=== PATIENT | male | born 1965 | race Caucasian/White ===

== ENCOUNTER 2024-12-02 13:59 | Outpatient (CLI) | payer BC, SELFPAY ==
--- NOTE | 2024-12-02 | CA_ITS ---
APPROVED REPORT EXAM: Comprehensive 2D, Doppler, and color-flow Echocardiogram Pathology Laboratory Aide: Eunice Carmona CRT Ht: 5 ft 7 in Wt: 152lbs BSA: 1.80 BP: 144/76 mmHg Indications: AVR 1985 , Smoker, HTN 2D Dimensions LA Volume 26.40 mL LA Volume Index 14.30 mL/m2 (M/F) 16-34 M-Mode Dimensions RVDd 2.25 cm (0.9-2.6) LA Diam 4.09 cm (1.9-4.0) LVDd 3.75 cm (3.5-5.7) LVDs 2.57 cm (3.5-5.7) IVSd 2.43 cm (0.6-1.1) PWd 1.43 cm (0.6-1.1) EF (Teich) 60.20% FS 31.50% EDV (Teich) 60.00 mL ESV (Teich) 23.90 mL LV Diastology E Decel Time 150 (160-240 msec) E/A Ratio 1.01 MED A' 6.00 cm/s LAT A' 14.00 cm/s Aortic Valve TOÑITO Index 0.73 cm2/m2 AoV Peak Chuck. 276.0 (50-130 cm/s) AO Peak GR. 30.50 mmHg AO Mean GR. 17.90 (<5 mmHg) AO VTI 52.5 (18-25 cm) TOÑITO (VTI) 1.35 (2.5-4.5 cm2) Mitral Valve MV E Max Chuck. 66.0 (40-130 cm/s) MV A Velocity 65.0 (40-130 cm/s) E/A Ratio 1.01 MV PHT 44.0 ms Tricuspid Valve TR P. Velocity 257.00 cm/s RAP Estimate 10.00 mmHg RVSP 36.50 mmHg Left Ventricle The left ventricle is normal size. Left ventricular systolic function is normal. The left ventricular ejection fraction is within the normal range. There is increased left ventricular wall thickness. There is normal LV segmental wall motion. The left ventricular diastolic function is indeterminate. LVEF is 55% Right Ventricle The right ventricle is mildly dilated. The right ventricular systolic function is mildly reduced. Atria The left atrium is mildly dilated. The right atrium is mildly dilated. There is no color Doppler evidence of interatrial shunt. Aortic Valve s/p mechanical AVR (1985). The prosthesis is well-seated. Peak velocity 2.8 m/s. Mean AV gradient 18 mmHg. Max AV gradient is 32 mmHg. Acceleration time 60 ms. Mild central aortic regurgitation is present. Mitral Valve The mitral valve is mildly thickened. No evidence of mitral valve stenosis. Mild mitral regurgitation is present. Tricuspid Valve The tricuspid valve leaflets are thin and pliable. Mild tricuspid regurgitation. RVSP is 25-30 mmHg. Pulmonic Valve The pulmonary valve is grossly normal in structure. Trace pulmonic valve regurgitation is present. Great Vessels The aortic root is normal in size. IVC is normal in size and collapses >50% with inspiration. Pericardium There is no pericardial effusion. Other Information Study Quality: Fair Conclusion Normal LV systolic function. Mild RV dilation with mild reduction in RV function. Mild biatrial dilation. s/p mechanical AVR (1985). Mild AI. Peak velocity 2.8 m/s. Mean AV gradient 18 mmHg. Max AV gradient is 32 mmHg. Acceleration time 60 ms. Mild MR, mild TR. Of note, there is no prior TTE available for comparison of AV gradients. Clinical correlation is required. Electronically signed by : Melanie Rich MD 12/05/2024 21:14:12
--- OUTSIDE RECORDS SUMMARY | 2024-12-02 14:14 | XMS_ITS | Clinical Summary ---
[facility] Organization [facility] Address [address] [place] [address] Care Team Providers Care [employer] Driver Name Role Phone Jan Moore MD Primary Care Provider Allergies No known active allergies Medications mupirocin (BACTROBAN) 2 % ointment Apply topically 3 (Three) Times a Day. 30 g 7 Active Social History Tobacco Use Types Packs/Day Years Used Date Smoking Tobacco: Some Days Comments:pipe smoker Abuse Screen Answer Date Recorded Unsafe at Home or Work/School Not on file Feels Threatened by Someone? Not on file 02/2023 Does Anyone Keep You from Co ntacting Others or Doint Things Outside the Home? Not on file 01/23/2023 Physical Sign of Abuse Present Not on file 1 Housing Stability Answer Date Recorded Current Living Arrangements Not on file 01/13 Potentially Unsafe Housing Conditions Not on vince e 01/23/2023 Family and Community Support Answer Minh e Recorded Help with Day-to-Day Activities Not on file 01/23/2023 Lonely or Isolated Not on file 01/23/2023 Employment Answer Date Recorded Do you want help finding or keeping work or a yoshi b? Not on file 01/23/2023 Disabilities Answer Date Recorded Concentrating, Remembering, or Making Decisions Difficulty Not on file 01/23/2023 Doing Errands Independently Difficulty Not on fi le 01/23/2023 Education Answer Date Recorded Help with school or training? Not on file Preferred Language Not on file 01/23/2023 Sex and Gender Information Value Date Recorded Sex Assigned at Not on file Legal Sex Male 10:06 AM EST Gender Identity Not on file Sexual Orientation Not on file Last Filed Vital Signs Vital Sign Reading Time Taken Comments Blood Pressure - - Pulse 70 04/21/2016 11:20 AM EST Temperature 36.6 C (97.8 F) 04/21/2016 11:20 AM EST Respiratory Rate 16 04/21/2016 11:20 AM EST Oxygen Saturation 98% 04/21/2016 11:20 AM EST Inhaled Oxygen Concentration - - Weight 68.5 kg (151 lb) 04/21/2016 11:20 AM EST Height 171.5 cm (5' 7.5 ) 04/21/2016 11:20 AM ES T Body Mass Index 23.3 04/21/2016 11:20 AM EST Plan of Treatment Health Maintenance Due Date Last Done Comments ANNUAL PHYSICAL 1965 HEPATITIS C SCREENING 1965 TDAP/TD VACCINES (1 - Tdap) 1986 COLOGUARD 02/26/2012 COLON CANCER SCREENING 5 YEAR SIGMOIDOSCOPY 02/26/2012 COLONOSCOPY 02/26/2012 COLORECTAL CANCER SCREENING 02/26/2012 CT COLONOGRAPHY 02/26/2012 FECAL OCCULT BLOOD TEST 02/26/2012 FIT Testing (1 year) 02/26/2012 Pneumococcal Vaccine 50+ (1 of 1 - PCV) 2017 ZOSTER VACCINE (1 of 2) 2017 COVID-19 Vaccine (1 - 2023- season) 2023 INFLUENZA VACCINE 01/13/2025 Insurance Care Teams [employer] Relationship Specialty Start Date End Date Jan Moore MD [address] [place] [address] [place] [address] PCP - General Internal Medicine 04/21/16
== END 2024-12-02 23:59 | disposition home or self-care (01) ==
LOC: RT 14:00
PROVIDERS: PCP Nurse Practitioner Family; Visit Provider Nurse Practitioner Family
DX: I08.8 Other rheumatic multiple valve diseases (principal); I10 Essential (primary) hypertension; F17.200 Nicotine dependence, unspecified, uncomplicated; Z95.2 Presence of prosthetic heart valve
CPT/HCPCS: 93306